=== PATIENT | male | born 1955 | race Caucasian/White ===

== ENCOUNTER 2021-01-29 10:51 | Emergency (ER) | payer MEDICARE ==
[~2021-01-29] VITALS: Ht 172.7 cm; Wt 90.6 kg
[2021-01-29 11:03] VITALS: TEMP 97.6
[2021-01-29 11:41] LABS: BASO % 0.5 % (0.0-2.0); EOS # 0.5 (0.0-0.7); EOS % 6.5 % (0-4.0); GRAN # 4.4 (1.4-6.5); GRAN % 58.9 % (42.2-75.2); HEMATOCRIT 50.8 % (42.0-52.0); HEMOGLOBIN 16.3 g/dl (13.5-18.0); LYMPH # 1.6 (1.2-3.4); LYMPH % 21.9 % (20.0-51.0); MEAN CELL VOLUME 93 fl (80.0-100.0); MEAN CORPUSCULAR HEMOGLOBIN 30 pg (27.0-31.0); MEAN CORPUSCULAR HGB CONC 32 g/dl (33.0-37.0); MEAN PLATELET VOLUME 11.1 fl (7.4-10.4); MONO # 0.9 (0.1-0.6); MONO % 12.1 % (1.7-9.3); PLATELET COUNT 206 K/mm3 (130-400); RED BLOOD COUNT 5.49 M/mm3 (4.20-5.60); REDCELL DISTRIBUTION WIDTH-CV 13.2 % (11.5-14.5)
[2021-01-29 11:54] LABS: BILIRUBIN,TOTAL 0.6 mg/dL (0.0-1.0); CALCIUM 9.1 mg/dL (8.4-10.2); CREATININE, serum 0.78 (0.66-1.25); POTASSIUM 3.8 mmol/L (3.4-5.0); TOTAL PROTEIN 7.4 gm/dL (6.4-8.2)
[2021-01-29 12:06] LABS: TROPONIN-I 0.016 ng/mL (0.000-0.035)
[2021-01-29] MEDS ORDERED: ZESTRIL 20MG TA20 MG PO (12:54)
[2021-01-29] MEDS ORDERED: LASIX 40MG TABL40 MG PO (12:54)
[2021-01-29 13:02] VITALS: BP 144/93; PULSE 85
== END 2021-01-29 13:02 | disposition left against medical advice (07) ==
LOC: COL.ER 10:51
PROVIDERS: Emergency Medicine
DX: I50.9 Heart failure, unspecified (principal); Z20.822 Contact with and (suspected) exposure to COVID-19

== ENCOUNTER 2021-03-03 09:26 | Day surgery (SDC) | payer MEDICARE ==
[~2021-03-03] VITALS: Ht 172.7 cm; Wt 88.0 kg
[2021-03-03] VITALS (11 sets, daily range): BP systolic 116–147; BP diastolic 59–74; PULSE 55–86; TEMP 97.7–98.1
[~2021-03-03 09:26] MED LIST: LASIX 40MG TABL40 MG PO; ZESTRIL 20MG TA20 MG PO
[2021-03-03] MEDS ORDERED: LASIX 40MG TABL40 MG PO (09:52)
[2021-03-03] MEDS ORDERED: ZESTRIL 20MG TA20 MG PO (09:52)
[2021-03-03] MEDS ORDERED: ASPIRIN 81M81 MG/TA2 PO (09:55)
[2021-03-03] MEDS ORDERED: TOPROL XL 25MG25 MG PO (09:55)
[2021-03-03 10:04] LABS: PROTHROMBIN TIME 10.5 SECONDS (9.7-12.8)
[2021-03-03 10:06] LABS: PARTIAL THROMBOPLASTIN TIME 29.4 SECONDS (26.0-37.0)
[2021-03-03 10:09] LABS: HEMATOCRIT 47.1 % (42.0-52.0); HEMOGLOBIN 15.7 g/dl (13.5-18.0); MEAN CELL VOLUME 89 fl (80.0-100.0); MEAN CORPUSCULAR HEMOGLOBIN 30 pg (27.0-31.0); MEAN CORPUSCULAR HGB CONC 33 g/dl (33.0-37.0); MEAN PLATELET VOLUME 10.9 fl (7.4-10.4); PLATELET COUNT 168 K/mm3 (130-400); REDCELL DISTRIBUTION WIDTH-CV 12.2 % (11.5-14.5)
--- NOTE | 2021-03-03 10:21 | NUR ---
SEE MERGE FOR MEDICATIONS ADMINISTRATIONS TIMES AND DOSAGES. INTRA/POST SEDATION ASSESSMENT.
[2021-03-03 10:24] LABS: CALCIUM 10.1 mg/dL (8.4-10.2); CREATININE, serum 0.74 mg/dL (0.72-1.25); POTASSIUM 3.8 mmol/L (3.5-4.5)
--- NOTE | 2021-03-03 12:00 | NUR ---
Patient arrived to Medical room 357 at this time from process laboratory specialist, he is alert/oriented, vital signs stable, denies pain, right wrist compression band in place / no signs of bleeding or hematoma, assisted him into the bathroom, will holley to monitor
--- NOTE | 2021-03-03 17:42 | NUR ---
band deflated , no signs of bleeding or hematoma, vital signs stable, denies needs, will continueto moonitor
--- NOTE | 2021-03-03 18:56 | NUR ---
Patient continues to do well post heart cath, vital signs stable, no bleeding or hematoma at right radial site, band deflated and removed, denies needs/ will continue to monitor
--- NOTE | 2021-03-03 21:08 | NUR ---
Patient is resting in bed on his left side watching a movie in his phone. He is alert and oriented x 4, denies pain, nausea or vomiting. VSS, no problems with circulation. Tele in place. Wrist compression band was removed from right arm, no bleeding or bruising problems. Bandiad applied. Assessment completed, meds provided. No further needs at this time. Call light within reach.
--- NOTE | 2021-03-03 22:27 | NUR ---
Tele monitor reported PT had HR in 40's. Pt was resting prone, repositioned. VSS Stable, HR 59. Denies chest pain. Hospitalist notified.
--- NOTE | 2021-03-03 22:30 | NUR ---
Awning Hanger executive communications manager notified. He instructed to notified if levels of HR are under 40s.
[2021-03-04] VITALS: BP 116/59; PULSE 59; TEMP 98
[2021-03-04 00:26] VITALS: BP 121/75; PULSE 53; TEMP 97.4
[2021-03-04 04:00] VITALS: BP 121/75; PULSE 53; TEMP 97.4
[2021-03-04 04:41] VITALS: BP 128/60; PULSE 56; TEMP 98.4
--- NOTE | 2021-03-04 06:48 | NUR ---
Patient has been stable along the night. All needs met. Shift report given to day RN.
[2021-03-04 08:37] VITALS: BP 134/63; PULSE 58; TEMP 97.7
--- NOTE | 2021-03-04 09:17 | NUR ---
Assessment completed, alert/oriented, vital signs stable, denies pain or discomfort, heart RRR/ SR on tele - slighty bradycardic at time and Cardiology is notified last night of this, stated his SOA is improved but still has dyspnea at times, o2 sats are WNL and on room air, right radial access site s/p heart cath is soft without bleeding or oozing noted, morning meds given and he had breakfast, I anticipate discharge home today, will continue to monitor
[2021-03-04] MEDS ORDERED: BRILINTA90 MG PO (11:18)
[2021-03-04] MEDS ORDERED: LIPITOR20 MG PO (11:18)
--- NOTE | 2021-03-04 11:24 | NUR ---
bilingual patient support caseworker met with patient to discuss discharge plan. Patient lives with his daughter Aure ([phone]) in [facility]. Patient reports to being fully independent within the home and does not utilize any DME to assist. Patient is not on O2. Patient states that cardiology has recently set him up with a PCP but he cannot remember her name. He utilizes [facility] for medications and does not currently have any difficulty affording his medications. Patient reports that he does not have a DPOA-HC established but verbalizes that his Aure is working with a manager privacy to obtain one. Established contact with the patient's daughter who states that she is not in the process of getting him a DPOA-HC and asks if this is something that the hospital can do. I followed with with the patient who is in agreement of taking a DPOA-HC form but does not wish to fill it out at this time. States that it is something he would like to complete with his daughter. Discharge plan: Patient is planning on returning home with his daughter.
--- NOTE | 2021-03-04 12:18 | NUR ---
Discharge orders discussed with the patient ,instructed to take Brillinta and Lipitor as prescribed/ scripts sent to pharmacy for him, instructed to continue all other home meds, instructed to follow up with Cardiology as scheduled for him, discussed activity and bathing restrictions r/t his arterial access puncture, IV and tele removed, he is driving himself home, CLIENT SOLUTIONS SPECIALIST will escort out the door
== END 2021-03-04 12:19 | disposition home or self-care (01) ==
LOC: COL.CAR 09:26 → MEDICAL 12:12 → COL.CAR 03-04 12:19
PROVIDERS: Internal Medicine Cardiovascular Disease
DX: I25.10 Atherosclerotic heart disease of native coronary artery without angina pectoris (principal); I11.0 Hypertensive heart disease with heart failure; I50.20 Unspecified systolic (congestive) heart failure; F17.210 Nicotine dependence, cigarettes, uncomplicated; Z79.899 Other long term (current) drug therapy
CPT/HCPCS: OP; C1725; C1769; C1874; C1887; C9600; J1644; J2250; J3010; J7030; Q9967

== ENCOUNTER → 2021-07-03 | Outpatient (CLI) | payer MEDICARE ==
[~2021-07-03] MED LIST changes: +ASPIRIN 81M81 MG/TA2 PO; +BRILINTA90 MG PO; +LIPITOR20 MG PO; +TOPROL XL 25MG25 MG PO
== END ==
LOC: COL.LAB 08:26
DX: J44.9 Chronic obstructive pulmonary disease, unspecified (principal); I50.20 Unspecified systolic (congestive) heart failure

== ENCOUNTER 2021-12-29 08:51 | Emergency (ER) | payer MEDICARE ==
[~2021-12-29] VITALS: Ht 172.7 cm; Wt 92.7 kg
[2021-12-29 09:03] VITALS: BP 160/87; PULSE 81; TEMP 97.4
[2021-12-29] MEDS ORDERED: K-DUR20 MEQ PO (09:12)
[2021-12-29] MEDS ORDERED: PREDNISONE20 MG PO (10:11)
== END 2021-12-29 10:30 | disposition home or self-care (01) ==
LOC: COL.ER 08:51
DX: M19.072 Primary osteoarthritis, left ankle and foot (principal); F17.200 Nicotine dependence, unspecified, uncomplicated; Z28.310 Unvaccinated for COVID-19; W06.XXXA Fall from bed, initial encounter
CPT/HCPCS: J7512

== ENCOUNTER 2022-07-28 14:07 | Inpatient (IN) | payer MEDICARE ==
[~2022-07-28] VITALS: Ht 175.3 cm; Wt 104.4 kg
[~2022-07-28 14:07] MED LIST changes: +K-DUR20 MEQ PO; +PREDNISONE20 MG PO
[2022-07-28 14:48] LABS: BASO # 0.1 K/mm3 (0.0-0.2); BASO % 0.9 % (0.0-2.0); EOS # 0.1 K/mm3 (0.0-0.7); GRAN # 4.9 K/mm3 (1.4-6.5); GRAN % 71.1 % (42.2-75.2); HEMOGLOBIN 17.6 g/dl (13.5-18.0); LYMPH # 1.2 K/mm3 (1.2-3.4); LYMPH % 16.7 % (20.0-51.0); MEAN CELL VOLUME 93 fl (80.0-100.0); MEAN CORPUSCULAR HEMOGLOBIN 30 pg (27-31); MEAN CORPUSCULAR HGB CONC 32 g/dl (33.0-37.0); MEAN PLATELET VOLUME 12.2 fl (7.4-10.4); MONO # 0.6 K/mm3 (0.1-0.6); PLATELET COUNT 188 K/mm3 (130-400); RED BLOOD COUNT 5.92 M/mm3 (4.20-5.60); REDCELL DISTRIBUTION WIDTH-CV 18.4 % (11.5-14.5)
[2022-07-28 15:00] LABS: ALBUMIN 3.2 gm/dL (3.4-4.8); BILIRUBIN,TOTAL 2.2 mg/dL (0.2-1.2); CALCIUM 9.2 mg/dL (8.4-10.2); CREATININE, serum 1.27 mg/dL (0.72-1.25); POTASSIUM 3.7 mmol/L (3.5-4.5); TOTAL PROTEIN 7.5 gm/dL (6.2-8.1)
[2022-07-28 15:08] LABS: TROPONIN-I 0.054 ng/mL (0.00-0.033)
[2022-07-28 15:15] LABS: ARTERIAL BLD GAS O2 SATURATION 98.9 % (92-100); ARTERIAL BLD GAS TCO2 CT 46.6; ARTERIAL BLOOD GAS BASE EXCESS 13.9 (-2-2); ARTERIAL BLOOD GAS HCO3 44.2 meq/L (22-26); ARTERIAL BLOOD GAS pH 7.36 (7.35-7.45)
[2022-07-28 15:51] LABS: INR 1.2 (0.8-3.0); PROTHROMBIN TIME 13.8 SECONDS (9.7-12.8)
[2022-07-28 16:45] LABS: COLLECTION METHOD CLEAN CATCH
[2022-07-28 16:48] LABS: URINE APPEARANCE Clear (CLEAR/HAZY); URINE COLOR Yellow (YELLOW)
[2022-07-28 16:49] LABS: PH 5.5 (5.0-8.5); URINE BLOOD Negative (NEGATIVE); URINE GLUCOSE Negative (NEGATIVE); URINE KETONE Negative (NEGATIVE); URINE NITRATE Negative (NEGATIVE); URINE PROTEIN(semi-quant) Negative (NEGATIVE); URINE UROBILINOGEN 0.2 E.U/dL (0.2-1.0)
[2022-07-28 17:03] LABS: SQUAMOUS EPITHELIAL None Seen /hpf (0-10); URINE BACTERIA None Seen /hpf (NONE SEEN); URINE RBC 0-2 /hpf (0-2)
[2022-07-28] MEDS ORDERED: TOPROL XL 50MG50 MG PO (17:05)
[2022-07-28 20:27] VITALS: BP 121/90; PULSE 76; TEMP 97.6
--- NOTE | 2022-07-28 20:45 | NUR ---
Up to medical floor room 319 from ER- [facility] yuniel, did get lasix in ER,, reminded that we need to measure urine- states he cannot use the urinal due to genital swelling-- will put hat in bathrrom- o2 at 6L/OM, did give him a sandwich tray at this time,
[2022-07-28 23:19] VITALS: BP 132/93; PULSE 76; TEMP 98
--- NOTE | 2022-07-28 23:34 | NUR ---
Report received from Sujata at 2230. Up to bathroom with assist x1 to void. Hats in toilet. Fall precautions in place. skin tear to left forearm, approx [id number], unable to approximate edges. Pt reports that he pumpbed it on the corner of his bedside tray. Area cleansed, nonstick gauze applied, wrapped with kerlix gauze. Makes needs known, call light within reach.
--- NOTE | 2022-07-29 02:25 | NUR ---
Report received from Hyacinth Santoyo. Pt resting with eyes closed. Call light within reach.
[2022-07-29 04:38] VITALS: BP 122/83; PULSE 72; TEMP 98.2
[2022-07-29 08:17] VITALS: BP 126/79; PULSE 69; TEMP 97.5
--- NOTE | 2022-07-29 08:36 | NUR ---
SHIFT ASSESSMENT COMPLETED AND MORNING MEDICATIONS ADMINISTERED PER ORDER. PATIENT IS ALERT AND ORIENTED X4. LUNGS DIMINISHED THROUGHOUT. ABD DISTENDED. 2+ EDEMA TO BLE. MULTIPLE ABRASIONS NOTED TO LEFT ARM. DENIES ANY NEEDS. CALL LIGHT WITHIN REACH.
--- NOTE | 2022-07-29 09:10 | NUR ---
Initial visit; Patient thanked Equipment Hire Manager for looking in on him this morning though he has no spiritual needs he was receptive to having Equipment Hire Manager keep him in her prayer.
[2022-07-29 11:02] VITALS: BP 119/86; PULSE 72; TEMP 97.5
--- NOTE | 2022-07-29 11:40 | NUR ---
SW met with the patient to discuss discharge plan. The patient lives alone in [place]. He reports independence with ADLs and does not have any DME. The patient's PCP is Dr. Tracie Michael and he receives his medications from [facility]. The patient does not have a DPOA-HC. He states that he is and has two children: Opal Rubalcava (ph#[phone]) and Sandeep. The patient plans to return home upon discharge. No additional needs at this time. *Discharge plan: home*
[2022-07-29 13:33] LABS: BASO % 0.6 % (0.0-2.0); EOS # 0.2 K/mm3 (0.0-0.7); EOS % 3.7 % (0.0-4.0); GRAN # 4.7 K/mm3 (1.4-6.5); GRAN % 74.3 % (42.2-75.2); HEMATOCRIT 52.6 % (42.0-52.0); HEMOGLOBIN 16.3 g/dl (13.5-18.0); LYMPH # 0.6 K/mm3 (1.2-3.4); LYMPH % 9.4 % (20.0-51.0); MEAN CELL VOLUME 95 fl (80.0-100.0); MEAN CORPUSCULAR HEMOGLOBIN 29 pg (27-31); MEAN CORPUSCULAR HGB CONC 31 g/dl (33.0-37.0); MEAN PLATELET VOLUME 12.5 fl (7.4-10.4); MONO # 0.7 K/mm3 (0.1-0.6); MONO % 11.5 % (1.7-9.3); PLATELET COUNT 148 K/mm3 (130-400); RED BLOOD COUNT 5.54 M/mm3 (4.20-5.60); REDCELL DISTRIBUTION WIDTH-CV 17.8 % (11.5-14.5)
[2022-07-29 13:47] LABS: CHOLESTEROL RISK RATIO 3.3
[2022-07-29 13:58] LABS: CALCIUM 8.7 mg/dL (8.4-10.2); CREATININE, serum 1.13 mg/dL (0.72-1.25); POTASSIUM 3.4 mmol/L (3.5-4.5)
[2022-07-29 16:10] VITALS: BP 119/85; PULSE 77; TEMP 97.5
--- NOTE | 2022-07-29 16:38 | NUR ---
PATIENT NOTED ON TELE TO HAVE MULTIPLE PVCS, SINUS DYSRHYTHMIA, AND POSSIBLE BUNDLE BRANCH. DR. WHYTE NOTIFIED, NEW ORDER FOR EKG RECEIVED. PATIENT DENIES CHEST PAIN, VITAL SIGNS STABLE- BP 106/82, HR 77. EKG SHOWS SINUS DYS WITH MULTIPLE PVCS, POSSIBLE FL OF UNKNOWN AGE- DR. WHYTE NOTIFIED.
--- NOTE | 2022-07-29 18:33 | NUR ---
PATIENT UP IN CHAIR AT THIS TIME. DENIES NEEDS OR PAIN. CALL LIGHT WITHIN REACH.
--- NOTE | 2022-07-29 18:43 | NUR ---
PATIENT WENT DOWN TO RADIOLOGY FOR THORACENTESIS, HOWEVER, PER RADIOLOGY, PATIENT CANNOT HAVE THORA DUE TO RECEIVING BRILINTA TODAY. DR. WHYTE UPDATED THAT PATIENT MUST BE OFF BRILINTA FOR 5 DAYS PRIOR TO GETTING THORA. DR[address] WHYTE UPDATED REGARDING CRITICAL CARBON DIOXIDE.
[2022-07-29 20:24] VITALS: BP 119/63; PULSE 75; TEMP 97.9
[2022-07-29 22:18] VITALS: BP 122/79; PULSE 75; TEMP 97.6
[2022-07-29 22:58] LABS: CALCIUM 8.7 mg/dL (8.4-10.2); CREATININE, serum 1.1 mg/dL (0.72-1.25); MAGNESIUM 1.3 mg/dL (1.6-2.6); POTASSIUM 3.5 mmol/L (3.5-4.5)
[2022-07-30] VITALS (7 sets, daily range): BP systolic 112–138; BP diastolic 67–92; PULSE 60–85; TEMP 97.4–98.3
--- NOTE | 2022-07-30 05:00 | NUR ---
ASSESSMENT COMPLETE FOR STUDENT AMBASSADOR. PT'S O2 DROPPED INTO THE 70'S. PT'S OXYGEN LEVELS ELEVATED. RT CALLED. PT'S O2 RETURN TO ABOVE 90%. PT REMINDED TO KEEP HIS OXYGEN ON. PT HAD A 6 SECOND BEAT OF V-TACH PER MARITIME GUARD. HOSPITALIST CALLED. WILL CONTINUE TO MONITOR. PT ALSO HAD A FALL THIS SHIFT. PT FOUND BY JUMP IRON MACHINE PRESSER ON THE FLOOR. PT ASKED WHAT HAPPEN. PT STATED HE SLIPPED OUT OF THE BED. PT DENIED PAIN, VSS. THE ONLY INJURY NOTED, SMALL SKIN TEAR TO LEFT FOREARM. SKIN TEAR CLEANED AND COVER WITH MEPILEX. HOSPITALIST NOTIFIED. FALL PRECAUTIONS IN PLACE. BED ALARM ON. CALL LIGHT WITHIN REACH.
[2022-07-30 05:24] LABS: ARTERIAL BLD GAS O2 SATURATION 94.6 % (92-100); ARTERIAL BLD GAS TCO2 CT 58.9; ARTERIAL BLOOD GAS BASE EXCESS 20.9 (-2-2); ARTERIAL BLOOD GAS HCO3 55.3 meq/L (22-26); ARTERIAL BLOOD GAS PO2 75.7 mmHg (80-100); ARTERIAL BLOOD GAS pH 7.29 (7.35-7.45)
[2022-07-30 05:30] LABS: ARTERIAL BLOOD GAS PCO2 117.6 mmHg (35-45)
[2022-07-30 08:27] LABS: ARTERIAL BLD GAS O2 SATURATION 93.1 % (92-100); ARTERIAL BLD GAS TCO2 CT 59.6; ARTERIAL BLOOD GAS BASE EXCESS 21.8 (-2-2); ARTERIAL BLOOD GAS PO2 71.1 mmHg (80-100)
[2022-07-30 08:28] LABS: ARTERIAL BLOOD GAS PCO2 117.7 mmHg (35-45)
[2022-07-30 08:33] LABS: BASO % 0.5 % (0.0-2.0); EOS # 0.1 K/mm3 (0.0-0.7); EOS % 1.6 % (0.0-4.0); GRAN % 78.1 % (42.2-75.2); HEMATOCRIT 53.7 % (42.0-52.0); HEMOGLOBIN 16.6 g/dl (13.5-18.0); LYMPH # 0.7 K/mm3 (1.2-3.4); LYMPH % 10.1 % (20.0-51.0); MEAN CELL VOLUME 96 fl (80.0-100.0); MEAN CORPUSCULAR HEMOGLOBIN 30 pg (27-31); MEAN CORPUSCULAR HGB CONC 31 g/dl (33.0-37.0); MEAN PLATELET VOLUME 11.5 fl (7.4-10.4); MONO # 0.6 K/mm3 (0.1-0.6); MONO % 9.5 % (1.7-9.3); PLATELET COUNT 141 K/mm3 (130-400); RED BLOOD COUNT 5.58 M/mm3 (4.20-5.60); REDCELL DISTRIBUTION WIDTH-CV 17.3 % (11.5-14.5)
[2022-07-30 08:51] LABS: CREATININE, serum 1.07 mg/dL (0.72-1.25); POTASSIUM 3.9 mmol/L (3.5-4.5)
--- NOTE | 2022-07-30 09:27 | NUR ---
Pt assessment complete. Pt is laying in bed on his side wearing 4L O2 via OM. States it is easier for him to breath on his side. D/t this the bipap would continuously have a leak and is ineffective, orders to intermittently place patient on bipap through the day as tolerated by Dr. Mata. Pt denies any pain. POC discussed no needs at this time. Agreeable to shower later. Call light within reach.
--- NOTE | 2022-07-30 19:08 | NUR ---
Pt wore bipap for a few hours this afternoon. Otherwise on 4L O2 via NC. Assisted in bathing. New IV to L lateral AC. Pt repositions himself in bed. Fall precautions in place. Call light within reach.
[2022-07-31 03:59] VITALS: BP 112/69; PULSE 100
[2022-07-31 05:24] LABS: ARTERIAL BLD GAS O2 SATURATION 85.3 % (92-100); ARTERIAL BLD GAS TCO2 CT 49.5; ARTERIAL BLOOD GAS BASE EXCESS 16.9 (-2-2); ARTERIAL BLOOD GAS PO2 50.8 mmHg (80-100); ARTERIAL BLOOD GAS pH 7.38 (7.35-7.45)
[2022-07-31 05:26] LABS: ARTERIAL BLOOD GAS PCO2 81.7 mmHg (35-45)
[2022-07-31 06:44] LABS: EOS # 0.1 K/mm3 (0.0-0.7); GRAN # 4.4 K/mm3 (1.4-6.5); GRAN % 87.9 % (42.2-75.2); HEMATOCRIT 48.6 % (42.0-52.0); HEMOGLOBIN 14.8 g/dl (13.5-18.0); LYMPH # 0.4 K/mm3 (1.2-3.4); LYMPH % 7.5 % (20.0-51.0); MEAN CELL VOLUME 96 fl (80.0-100.0); MEAN CORPUSCULAR HEMOGLOBIN 29 pg (27-31); MEAN CORPUSCULAR HGB CONC 31 g/dl (33.0-37.0); MEAN PLATELET VOLUME 12.3 fl (7.4-10.4); MONO # 0.1 K/mm3 (0.1-0.6); MONO % 2.6 % (1.7-9.3); PLATELET COUNT 134 K/mm3 (130-400); RED BLOOD COUNT 5.05 M/mm3 (4.20-5.60); REDCELL DISTRIBUTION WIDTH-CV 16.8 % (11.5-14.5)
[2022-07-31 07:05] LABS: CALCIUM 8.7 mg/dL (8.4-10.2); CREATININE, serum 0.97 mg/dL (0.72-1.25)
[2022-07-31 08:45] VITALS: BP 100/37; PULSE 63; TEMP 98
[2022-07-31 12:50] VITALS: BP 96/56; PULSE 93; TEMP 98.3
--- NOTE | 2022-07-31 14:30 | NUR ---
FOUND ON WITH O OFF 85% ON RA. PLACED BACK ON 4 LPM NC AFTER BREATHING TX. RN NOTIFIED
[2022-07-31 16:30] VITALS: BP 95/52; PULSE 55; TEMP 98.4
[2022-07-31 20:10] VITALS: BP 110/77; PULSE 52; TEMP 97.4
[2022-07-31 23:54] LABS: CALCIUM 8.7 mg/dL (8.4-10.2); CREATININE, serum 1.2 mg/dL (0.72-1.25); MAGNESIUM 2.2 mg/dL (1.6-2.6)
[2022-08-01] VITALS (7 sets, daily range): BP systolic 103–147; BP diastolic 57–81; PULSE 51–99; TEMP 97.4–99.1
--- NOTE | 2022-08-01 05:15 | NUR ---
ASSESSMENT FOR GROUP PRESIDENT COMPLETE. PT ON BiPAP MOST OF THE NIGHT, HOWEVER IT TOOK DILIGENCE WITH THE HELP OF ALL MEDICAL FLOOR SHAFF TO HELP HIM KEEP IT ON BETWEEN HIM CONSTANTLY PULLING IT OFF AND RT NOT WANTING TO PUT IT ON HIM RIGHT AWAY (WANTED TO WAIT UNTIL 2300HRS) EVEN WHEN ASKED TO PUT HIM ON RIGHT AWAY AND WANTING TO TAKE HIM OFF EARLY (TOLD THE AID IT WAS OK TO TAKE HIM OFF AT 0400HRS BECAUSE SHE WAS GOING TO TAKE HIM OFF AT 0500HRS ANYWAY). HOSPITALIST CALLED ABOUT CONCERNS CALLED BY PROFESSOR OF ENVIRONMENTAL SCIENCE. EKG ORDERED. PACEMAKER INTERROGATED. FALL PRECAUTIONS IN PLACE. BED ALARM ON. CALL LIGHT WITHIN REACH.
[2022-08-01 06:35] LABS: BASO % 0.1 % (0.0-2.0); EOS % 0.1 % (0.0-4.0); GRAN # 5.9 K/mm3 (1.4-6.5); GRAN % 88.2 % (42.2-75.2); HEMATOCRIT 42.5 % (42.0-52.0); HEMOGLOBIN 14.1 g/dl (13.5-18.0); LYMPH # 0.4 K/mm3 (1.2-3.4); LYMPH % 5.7 % (20.0-51.0); MEAN CORPUSCULAR HEMOGLOBIN 30 pg (27-31); MEAN CORPUSCULAR HGB CONC 33 g/dl (33.0-37.0); MEAN PLATELET VOLUME 12.6 fl (7.4-10.4); MONO # 0.4 K/mm3 (0.1-0.6); MONO % 5.5 % (1.7-9.3); PLATELET COUNT 136 K/mm3 (130-400); RED BLOOD COUNT 4.78 M/mm3 (4.20-5.60)
[2022-08-01 06:42] LABS: MEAN CELL VOLUME 89 fl (80.0-100.0)
[2022-08-01 06:49] LABS: CALCIUM 8.4 mg/dL (8.4-10.2); CREATININE, serum 1.12 mg/dL (0.72-1.25); POTASSIUM 3.4 mmol/L (3.5-4.5)
--- NOTE | 2022-08-01 09:27 | NUR ---
Pt laying in bed. Morning medications administered per eMAR; betablocker & diuretic ok to give per . Shift assessment completed. Pt alert to self. Unable to answer date/location/situation. Pt on 4L per NC wit O2 sats currently at 92%, WNL. Telemetry remains on. Pacemaker interrogation completed. INT in L forearm in patent with betty wrap in place. No request at this time. Call light within reach. Bed alarm on.
--- NOTE | 2022-08-01 10:40 | NUR ---
Pt found with IV site removed. Pt applying pressure to L forearm. Blood noted all over bed linen and floor. Gauze placed over L forearm and pressure applied. Cinthia,RN notified pt no longer has IV access.
[2022-08-01 15:10] LABS: ARTERIAL BLD GAS O2 SATURATION 94.2 % (92-100); ARTERIAL BLD GAS TCO2 CT 38.3; ARTERIAL BLOOD GAS BASE EXCESS 11.4 (-2-2); ARTERIAL BLOOD GAS HCO3 36.7 meq/L (22-26); ARTERIAL BLOOD GAS pH 7.48 (7.35-7.45)
--- NOTE | 2022-08-01 16:08 | NUR ---
Die Cast Patternmaker faxed referral to [facility] for SNF. Seth at [facility] reported that he will submit the referral to his clinical team for assessment. SW sent an authorization request to [facility]. It was accepted for three days starting 08-01 Auth #[id number]. Accepptance pending for [facility]. Discharge Plan: SNF [facility] pending Acceptence.
--- NOTE | 2022-08-01 20:30 | NUR ---
Initial shift assessment done- pt drowsy and had been sleeping for the past couple hours-- did wake to name called, when asked if he knew where he was - states "on a ship" informed hime he was in the hospital-- he was very surprised! denies pain, goes right back to sleep-- o2 at 4L/ncbut respiratory therapy here to place on BiPap at this time-
[2022-08-02 03:57] VITALS: BP 100/67; PULSE 51; TEMP 97.4
--- NOTE | 2022-08-02 05:35 | NUR ---
Very Quiet night - Has kept the BiPap on the entire night-was up to bathroom with assist x1-voided 250cc juan urine. Remains confused but cooperative.
[2022-08-02 08:00] VITALS: BP 104/64; PULSE 54; TEMP 97.7
--- NOTE | 2022-08-02 08:58 | NUR ---
Pt alert and laying in bed. Morning medications adminsitered per eMAR. Shift assessment completed. Pt is A&Ox4 at this time. Telemetry remains on. Pt remains on 4L per NC. INT in L wrist patent, no edema or redness. Acewrap in place. No further request at this time. Call light within reach. Bed alarm on.
[2022-08-02 10:53] VITALS: BP 109/67; PULSE 59; TEMP 97.6
[2022-08-02 13:18] LABS: EOS % 0.1 % (0.0-4.0); GRAN # 6.1 K/mm3 (1.4-6.5); GRAN % 88.3 % (42.2-75.2); HEMATOCRIT 44.5 % (42.0-52.0); HEMOGLOBIN 14.3 g/dl (13.5-18.0); LYMPH # 0.4 K/mm3 (1.2-3.4); LYMPH % 5.2 % (20.0-51.0); MEAN CELL VOLUME 91 fl (80.0-100.0); MEAN CORPUSCULAR HEMOGLOBIN 29 pg (27-31); MEAN CORPUSCULAR HGB CONC 32 g/dl (33.0-37.0); MEAN PLATELET VOLUME 13.4 fl (7.4-10.4); MONO # 0.4 K/mm3 (0.1-0.6); MONO % 5.8 % (1.7-9.3); PLATELET COUNT 131 K/mm3 (130-400); RED BLOOD COUNT 4.88 M/mm3 (4.20-5.60); REDCELL DISTRIBUTION WIDTH-CV 17.4 % (11.5-14.5)
[2022-08-02 13:33] LABS: ALBUMIN 2.9 gm/dL (3.4-4.8); BILIRUBIN,TOTAL 1.5 mg/dL (0.2-1.2); CALCIUM 8.6 mg/dL (8.4-10.2); CREATININE, serum 1.16 mg/dL (0.72-1.25); TOTAL PROTEIN 5.8 gm/dL (6.2-8.1)
--- NOTE | 2022-08-02 13:48 | NUR ---
Critical Cl 87 & CO2 [address] Mata.
--- NOTE | 2022-08-02 14:09 | NUR ---
Met w/pt in room w/farmworker fur Maria L. Discussed the gravity of his illness and the different options available, pt states his goal is to see his Grandchildren one more time. He states he wants to go to [facility] home to see if he can get stronger. He was able to assign his daughter Opal to be DPOA. At this time he doesn't wish to have hospice services. His work of breathing is such that he gets winded talking. HOB > 30 degrees, O2 on per NC.
--- NOTE | 2022-08-02 15:14 | NUR ---
LISSETTE staffed with RT and obtained the patient's bipap settings. LISSETTE notified Brennan at [facility] of the bipap settings. A palliative care consult was ordered. LISSETTE and manager field sales, Sherrell, met with the patient to address goals of care. The patient is wanting to continue treatment. LISSETTE informed him how his insurance approved SNF at [facility] and we are just awaiting official acceptance. The patient verbalized understanding and is agreeable to going to a care home facility. LISSETTE inquired if the patient has a DPOA-HC. The patient states that he does not. LISSETTE educated him about having a DPOA-HC. The patient verbalized understanding and was interested in completing one. LISSETTE provided the form. The patient verbalized that he would like to designate his daughter, Opal Rubalcava (ph#[phone]). He did not want to designate an alternate. LISSETTE and Sherrell, manager field sales, witnessed the patient's signature. LISSETTE provided the patient with the original and some copies. LISSETTE placed a copy in the patient's chart. The patient shared with us that he lives in a trailer and does not have water or gas at this time. He states that a pipe broke and it has not been fixed yet. He states that he does have electricity. LISSETTE contacted the patient's daughter, Opal, to update her on the above. Opal states that she is working right now, but will be up to the hospital this evening, after her shift. She is supportive of the patient going to a SNF. Brennan, at [facility], reports that they are able to accept the patient for a skilled stay. He is working on getting a bipap ordered for him to use during his stay.
[2022-08-02 16:00] VITALS: BP 93/58; PULSE 55; TEMP 97.9
[2022-08-02 16:48] VITALS: BP 97/59
--- NOTE | 2022-08-02 17:43 | NUR ---
Pt eating dinner. Remains on 4L per NC. No request at this time. Call light within reach. Bed alarm on.
[2022-08-02 20:01] VITALS: BP 105/52; PULSE 56; TEMP 97.6
[2022-08-03 00:08] VITALS: BP 112/71; PULSE 47; TEMP 97.5
[2022-08-03 03:52] VITALS: BP 110/66; PULSE 51; TEMP 97.2
[2022-08-03 04:39] LABS: ARTERIAL BLD GAS O2 SATURATION 92.7 % (92-100); ARTERIAL BLD GAS TCO2 CT 45.3; ARTERIAL BLOOD GAS BASE EXCESS 14.9 (-2-2); ARTERIAL BLOOD GAS HCO3 43.2 meq/L (22-26); ARTERIAL BLOOD GAS PO2 65.9 mmHg (80-100); ARTERIAL BLOOD GAS pH 7.42 (7.35-7.45)
[2022-08-03 04:41] LABS: ARTERIAL BLOOD GAS PCO2 68.8 mmHg (35-45)
[2022-08-03 07:01] LABS: HEMATOCRIT 44.3 % (42.0-52.0); HEMOGLOBIN 14.6 g/dl (13.5-18.0); MEAN CELL VOLUME 90 fl (80.0-100.0); MEAN CORPUSCULAR HEMOGLOBIN 30 pg (27-31); MEAN CORPUSCULAR HGB CONC 33 g/dl (33.0-37.0); MEAN PLATELET VOLUME 11.9 fl (7.4-10.4); PLATELET COUNT 120 K/mm3 (130-400); REDCELL DISTRIBUTION WIDTH-CV 17.3 % (11.5-14.5)
[2022-08-03 07:15] LABS: CALCIUM 8.4 mg/dL (8.4-10.2); CREATININE, serum 1.05 mg/dL (0.72-1.25); POTASSIUM 3.6 mmol/L (3.5-4.5)
[2022-08-03 07:50] VITALS: BP 107/59; PULSE 58; TEMP 97.9
--- NOTE | 2022-08-03 08:31 | NUR ---
Pt awake and eating breakfast. Morning medications adminsitered per eMAR. Shift assessment completed. Pt is A&Ox4 this morning. O2 currently on 5L per NC. Telemetry remains on with SB. INT in L forearm in place with betty wrap. No request at this time. Call light within reach. Bed alarm on.
[2022-08-03] MEDS ORDERED: LIPITOR 80MG80 MG PO (08:32)
[2022-08-03] MEDS ORDERED: ALDACTONE 25MG25 M1 PO (08:32)
[2022-08-03] MEDS ORDERED: ENTRESTO 24 MG1 EACH PO (08:32)
[2022-08-03] MEDS ORDERED: TOPROL XL 25MG25 MG PO (08:32)
[2022-08-03] MEDS ORDERED: DESENEX TP (08:33)
[2022-08-03] MEDS ORDERED: PREDNISONE20 MG PO (08:33)
[2022-08-03] MEDS ORDERED: JARDIANCE10 PO (08:33)
[2022-08-03 09:12] LABS: ANISOCYTOSIS 1+; BAND 1 % (0-10); HYPOCHROMIA 1+; LYMPHOCYTE 5 % (20.0-51.0); NEUTROPHILS 92 % (42.0-75.2); PLATELET ESTIMATE DECREASED (NORMAL)
--- NOTE | 2022-08-03 09:26 | NUR ---
CARDIAC GOLD PLATER. NURSE IN ROOM AND VISITS WITH PATIENT. PATIENT VERY QUIET BUT ALERT. DISCUSSED HEART FAILURE ZONES. DOES NOT VOICE MUCH BACK TO NURSE. GIVEN HANDOUT AND CARD WITH CARDIAC REHAB PHONE NUMBER. DOESNOT SAY MUCH BUT DOES NOD HEAD.
--- NOTE | 2022-08-03 11:12 | NUR ---
LISSETTE obtained a script for the bipap from the hospitalist. LISSETTE faxed the script to Trevor at [facility]. Trevor states that the bipap is ready and [facility] plans to brass pickler the bipap soon. LISSETTE followed up with Brennan at [facility]. Brennan confirms that they are able to accept the patient today. Transportation was scheduled at 1400. LISSETTE met with the patient to update. The patient is in agreement to the plan. LISSETTE presented and read the IM form outloud to the patient. The patient verbalized understanding and agreement to discharge today. He signed the form and LISSETTE provided him with a copy. The patient is to discharge today, 08/03, to [facility] for a skilled stay. Transportation provided by [facility]. LISSETTE updated the patient's RN and the patient's daughter, Opal. No additional needs at this time.
[2022-08-03 11:22] VITALS: BP 111/62; PULSE 55; TEMP 97.7
--- NOTE | 2022-08-03 14:32 | NUR ---
Report given to JAVIER Plata at [facility] Currently waiting for transportation to arrive.
--- NOTE | 2022-08-03 14:50 | NUR ---
Pt envelope given to [facility] transportation. Pt escorted out of facility via wheelchair by [facility] transportation staff.
== END 2022-08-03 14:50 | DRG 291 ==
LOC: COL.ER 14:07 → MEDICAL 16:57
PROVIDERS: Internal Medicine Pulmonary Disease; Nurse Practitioner; Student in an Organized Health Care Education/Training Program; ADMIT Student in an Organized Health Care Education/Training Program
PROC: 5A09557 Assistance with Respiratory Ventilation, Greater than 96 Consecutive Hours, Continuous Positive Airway Pressure (ICD-10-PCS; principal; 2022-07-30)
DX: I11.0 Hypertensive heart disease with heart failure (principal); I50.23 Acute on chronic systolic (congestive) heart failure; J96.01 Acute respiratory failure with hypoxia; J96.02 Acute respiratory failure with hypercapnia; N17.9 Acute kidney failure, unspecified; J44.1 Chronic obstructive pulmonary disease with (acute) exacerbation; J91.8 Pleural effusion in other conditions classified elsewhere; I24.8 Other forms of acute ischemic heart disease; E87.20 Acidosis, unspecified; E87.3 Alkalosis; I25.10 Atherosclerotic heart disease of native coronary artery without angina pectoris; I73.9 Peripheral vascular disease, unspecified; I49.3 Ventricular premature depolarization; I42.8 Other cardiomyopathies; F17.210 Nicotine dependence, cigarettes, uncomplicated; Z20.822 Contact with and (suspected) exposure to COVID-19; E78.5 Hyperlipidemia, unspecified; Z90.49 Acquired absence of other specified parts of digestive tract; Z95.0 Presence of cardiac pacemaker; Z88.0 Allergy status to penicillin; Z91.14 Patient's other noncompliance with medication regimen; Z79.82 Long term (current) use of aspirin; Z23 Encounter for immunization
CPT/HCPCS: A9270; J1650; J1940; J2920; J3475; Q9967